=== PATIENT | female | born 1945 | race Two or more races ===

== ENCOUNTER 2025-01-11 13:28 | Emergency (ER) | payer OTHER ==
[~2025-01-11] VITALS: Ht 162.6 cm; Wt 60.5 kg
--- NOTE | 2025-01-11 13:44 | ED.PDOC ---
HPI (NEURO) HPI Comments 79 y/o F, BIBA, with PMHx of thyroid cancer status post resection presents to the ED for CC of s/p syncopal episode. EMS reports, patient is coming from [facility] where she had a witnessed syncopal episode resulting in hitting her head against a bag rack. Per EMS, bystanders relay that after patient hit her head she was unarousable for [id number]. En route to the ED, patient's BS read at 149 and all vital signs were stable. Upon arrival to the ED, patient endorses symptoms of dizziness and faintness with nausea and flushing prior to syncopal episode however, is unable to recount events following. Following trauma, patient c/o pain to her right cervical neck and occipital region. Patient comments, that she is currently fasting d/t having a scheduled appointment with her PCP later today (01/11/25). Patient denies vision changes, chest pain, shortness of breath, weakness, numbness, vomiting, or headache. No other symptoms or modifying factors are present at this time. Chief Complaint: Syncope Time Seen by MD: 13:40 Reviewed Notes: Nurses Notes, Instrument Lens Generator Notes, Medications, Allergies Information Source: Patient, Emergency Med Personnel Mode of Arrival: EMS Severity: Moderate Timing: Minutes Duration: Minutes Prehospital treatment: None Weakness Location: Generalized Onset: At rest Circumstances: Spontaneous Symptoms: Syncope Before: Normal During: Awake After: Normal Mentation History of: None Modifying factors: Nothing Associated Signs and Symptoms: Headache, Neck Pain Past Medical History PAST MEDICAL HISTORY: Cancer Surgical History: Denies all surgeries COMMUNICATIONS PROFESSOR History: Denies all COMMUNICATIONS PROFESSOR Hx Family History Family History: Unknown Social History Smoker: Non-Smoker Alcohol: Denies ETOH Use Drugs: Denies Drug Use Lives In: Home Constitutional: denies: chills, diaphoresis, fatigue, fever, malaise, sweats, weakness, others EENTM: denies: blurred vision, double vision, ear bleeding, ear discharge, ear drainage, ear pain, ear ringing, eye pain, eye redness, hearing loss, mouth pain, mouth swelling, nasal discharge, nose bleeding, nose congestion, nose pain, photophobia, tearing, throat pain, throat swelling, voice changes, others Respiratory: denies: cough, hemoptysis, orthopnea, SOB at rest, shortness of breath, SOB with excertion, stridor, wheezing, others Cardiovascular: reports: dizzy spells; denies: chest pain, diaphoresis, Dyspnea on exertion, edema, irregular heart beat, left arm pain, lightheadedness, palpitations, PND, syncope, others Gastrointestinal: reports: nausea; denies: abdomen distended, abdominal pain, blood streaked bowels, constipated, diarrhea, dysphagia, difficulty swallowing, hematemesis, melena, poor appetite, poor fluid intake, rectal bleeding, rectal pain, vomiting, others Genitourinary: denies: abnormal vagina bleeding, burning, dyspareunia, dysuria, flank pain, frequency, hematuria, incontinence, pain, , vagina discharge, urgency, others Neurological: reports: headache; denies: dizziness, fainting, left sided numbness, left sided weakness, numbness, paresthesia, pre-existing deficit, right sided numbness, right sided weakness, seizure, speech problems, tingling, tremors, weakness, others Musculoskeletal: reports: back pain, neck pain; denies: gout, joint pain, joint swelling, muscle pain, muscle stiffness, others Integumetry: denies: bruises, change in color, change in hair/nails, dryness, laceration, lesions, lumps, rash, wounds, others Allergic/Immunocompromised: denies: Difficulty Healing, Frequent Infections, Hives, Itching, others Hematologic/Lymphatic: denies: anemia, blood clots, easy bleeding, easy bruising, swollen glands, others Endocrine: denies: excessive hunger, excessive sweating, excessive thirst, excessive urination, flushing, intolerance to cold, intolerance to heat, unexplained weight gain, unexplained weight loss, others Psychiatric: denies: anxiety, bipolar disorder, depression, hopeless, panic disorder, schizophrenia, sleepless, suicidal, others All Other Systems: Reviewed and Negative Physical Exam General Appearance: No Apparent Distress, Normal HEENT: Normal ENT Inspection, Pharynx Normal Neck: Full Range of Motion, Normal, Normal Inspection, Other (R cervical paraspinal tenderness, no midline tenderness, no stepoff or crepitus) Respiratory: Chest Non-Tender, Lungs Clear, No Accessory Muscle Use, No Respiratory Distress, Normal Breath Sounds Cardiovascular: No Edema, No Murmur, No Gallop, Normal Peripheral Pulses, Regular Rate/Rhythm Breast Exam: Deferred Gastrointestinal: No Organomegaly, Non Tender, No Pulsatile Mass, Normal Bowel Sounds, Soft Genitalia: Deferred Pelvic: Deferred Rectal: Deferred Extremities: No calf tenderness, Normal capillary refill, Normal inspection, Normal range of motion, Non-tender, No pedal edema Musculoskeletal : Location: Right Extremity Location: Back Apperance: Tenderness (paraspinal tenderness) Neurologic: Alert, 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 Was a procedure done?: No Differential Diagnosis (SZ) Seizure: Syncope CVA: Electrolyte Imbalance, Hypoglycemia, SAH, TIA General Weakness: Anemia, Dehydration, Electrolyte imbalance, Hypoglycemia, Hypotension, Hypovolemia, Myocardial infarction, Renal failure, Vertigo: central, Vertigo: peripheral Headache: CVA, Epidural Hemorrhage, Intracerebral Hemorrhage, Subarachnoid Hemorrhage, Subdural Hemorrhage X-Ray, Labs, Meds, VS Vital Signs Date Time Temp Pulse Resp B/P (MAP) Pulse Ox O2 Delivery O2 Flow Rate FiO2 01/11/25 13:34 98.2 88 16 142/88 95 98.2 Lab Test 01/11/25 14:20 Range/Units White Blood Count 8.4 4.4-10.8 10^3/uL Red Blood Count 5.70 H 4.0-5.20 10^6/uL Hemoglobin 17.4 H 12.2-16.2 g/dL Hematocrit 52.1 H 36.0-46.0 % Mean Corpuscular Volume 91.3 80.0-100.0 fL Mean Corpuscular Hemoglobin 30.6 28.0-32.0 pg Mean Corpuscular Hemoglobin Concent 33.5 32.0-36.0 g/dL Red Cell Distribution Width 17.0 H 11.8-14.3 % Platelet Count 230 140-450 10^3/uL Mean Platelet Volume 8.2 6.9-10.8 fL Neutrophils (%) (Auto) 70.7 37.0-80.0 % Lymphocytes (%) (Auto) 19.9 10.0-50.0 % Monocytes (%) (Auto) 8.0 0.0-12.0 % Eosinophils (%) (Auto) 1.0 0.0-7.0 % Basophils (%) (Auto) 0.4 0.0-2.0 % Neutrophils # (Auto) 5.9 1.6-8.6 10 ^3/uL Lymphocytes # (Auto) 1.7 0.4-5.4 10 ^3/uL Monocytes # (Auto) 0.7 0-1.3 10 ^3/uL Eosinophils # (Auto) 0.1 0-0.8 10 ^3/uL Basophils # (Auto) 0 0-0.2 10 ^3/uL Nucleated Red Blood Cells 0.1 % Sodium Level 137 136-145 mmol/L Potassium Level 3.8 3.5-5.1 mmol/L Chloride Level 99 98-107 mmol/L Carbon Dioxide Level 28 20-31 mmol/L Anion Gap 10 5-15 Blood Urea Nitrogen 9 9-23 mg/dL Creatinine 1.15 H 0.550-1.02 mg/dL Glomerular Filtration Rate Calc 48 >90 mL/min BUN/Creatinine Ratio 7.8 L 10.0-20.0 Serum Glucose 101 74-106 mg/dL Calcium Level 9.6 8.7-10.4 mg/dL Troponin I High Sensitivity 4 </=34 ng/L B-Type Natriuretic Peptide 60.77 0-100 pg/mL X-Ray, Labs, Meds, VS Comment Patient with history of thyroid cancer, presents with witnessed syncopal episode today. Vital signs stable and exam unremarkable. NIHSS 0 on arrival. Chest x-ray to evaluate for evidence of pneumonia, pneumothorax, CHF EKG and troponin to evaluate for evidence of arrhythmia, ACS, AMI Lab work (CBC, BMP) to evaluate for evidence of severe anemia, electrolyte abnormality including hypokalemia, hyperkalemia, hypernatremia, hyponatremia, hyperglycemia, hypoglycemia, etc. CT head to evaluate for intracranial hemorrhage, large mass, acute infarct, fra cture CT cervical spine to evaluate for fracture or dislocation Re-evaluate Time of 1ST Reevaluation: 14:10 Reevaluation 1ST: Unchanged Patient Education/Counseling: Diagnosis, Treatment Family Education/Counseling: No Family Present Departure 1 Departure Time of Disposition: 15:21 (On reassessment, patient's EKG nonischemic and troponin negative. Labs imaging unremarkable for traumatic injury. We will admit for syncope evaluation) Impression: Primary Impression: Syncope Additional Impressions: Blunt head trauma Nausea Disposition: 09 ADMITTED INPATIENT Admit to: Tele Condition: Guarded Critical Care Note Critical Care Time?: No Stability Stability form required: No Heart Score Heart Score: Heart Score Response (Comments) Value History N/A 0 EKG N/A 0 Age N/A 0 Risk Factors N/A 0 Troponin N/A 0 Total 0 I personally scribed for SANCHEZ FAUSTIN MD ([email or web address]) on 01/11/25 at 13:44. Electronically submitted by Ladi Perla ([email or web address]). I personally scribed for SANCHEZ FAUSTIN MD ([email or web address]) on 01/11/25 at 13:48. Electronically submitted by Ladi Perla ([email or web address]). I personally scribed for SANCHEZ FAUSTIN MD ([employer]) on 01/11/25 at 14:07. Electronically submitted by Ladi Perla ([email or web address]). SANCHEZ FAUSTIN MD Jan 11, 2025 13:44
--- NOTE | 2025-01-11 14:13 | DVH ---
CHEST RADIOGRAPH Indication: syncope Technique: Single frontal view of the chest was obtained Comparison: None FINDINGS: Lines and Tubes: None Lungs: No focal consolidation. Surgical clips are noted over the right medial lung apex. Pleura: No effusion. No pneumothorax. Cardiomediastinal contours: Unremarkable. Midline sternotomy wires are noted. Bones: No acute osseous abnormality. IMPRESSION: No acute cardiopulmonary disease.
--- NOTE | 2025-01-11 14:20 | DVH ---
CLINICAL INFORMATION: Fall injury. TECHNIQUE: Axial imaging was obtained through the brain without contrast. Coronal and sagittal reformatted images were obtained, reviewed, and stored. Images were reviewed in brain and bone windows. All CT scans at this medical facility are performed using dose modulation techniques as appropriate to a performed exam including the following: Automated exposure control was utilized; adjustment of the MA and/or KV according to patient size; and use of iterative reconstruction technique. CTDIvol = 52.04 mGy DLP = 920.38 mGy-cm COMPARISON: None FINDINGS: There is no acute intracranial hemorrhage. No mass effect or midline shift. Scattered areas of hypoattenuation are seen in the periventricular and subcortical white matter, which are nonspecific but most likely sequelae of small vessel ischemic disease. Focal area of hypoattenuation in the right basal ganglia, likely chronic lacunar infarct. The ventricles and sulci are within normal limits in size for age. Basal cisterns are patent. The calvarium is unremarkable. Complete opacification of the left maxillary sinus and contiguous with opacification in the left side of the nasal cavity, consistent with mucocele. Milder partial opacification in the right maxillary sinus and mild mucosal thickening of the ethmoid air cells. Mastoid air cells are clear. IMPRESSION: 1. No CT evidence of acute intracranial abnormality. 2. Nonacute findings as described above.
[2025-01-11 14:40] LABS: Hematocrit 52.1 % (36.0-46.0); Hemoglobin 17.4 g/dL (12.2-16.2); Mean Corpuscular Hemoglobin 30.6 pg (28.0-32.0); Mean Corpuscular Volume 91.3 fL (80.0-100.0); Nucleated Red Blood Cells % 0.1 %
[2025-01-11 14:48] LABS: Chloride 99 mmol/L (98-107); Potassium 3.8 mmol/L (3.5-5.1); Sodium 137 mmol/L (136-145)
[2025-01-11 14:49] LABS: Anion Gap 10 (5-15); Calcium 9.6 mg/dL (8.7-10.4); Carbon Dioxide 28 mmol/L (20-31)
[2025-01-11 14:54] LABS: BUN/Creatinine Ratio 7.8 (10.0-20.0); Blood Urea Nitrogen 9 mg/dL (9-23); Glucose 101 mg/dL (74-106)
--- NOTE | 2025-01-11 15:03 | DVH ---
Indication: fall Technique: CT axial images of the cervical spine are obtained without contrast. Coronal and sagittal reformats were obtained. Radiation Dose Information: CTDI volume is 12.1 mGy. Dose-length product is 342.01 mGy*cm Comparison: None FINDINGS: The cervical vertebral body heights are maintained. Straightening of normal cervical spine curvature. 3 mm anterolisthesis C7 upon T1. There is moderate to advanced disc space narrowing. No prevertebral edema. Facet articulations demonstrate moderate facet hypertrophic changes . The atlantooccipital, atlantoaxial articulations are intact. Right thyroidectomy. Heterogeneous lesion in the left thyroid bed with calcifications measuring 1.7 cm. IMPRESSION: Moderate to advanced cervical degenerative disc disease. Right thyroidectomy. Heterogeneous lesion in the left thyroid bed measuring 1.7 cm. Recommend ENT consultation and thyroid ultrasound to further evaluate, managed.
[2025-01-11] MEDS ORDERED: SODIUM CHLORIDE 0.9% 1,000 ML IV ONE (18:00)
[2025-01-11 18:43] VITALS: BP 74/60; PULSE 70; RESP 18; TEMP 98.6; O2SAT 97
[2025-01-11] MEDS ORDERED: TRAM50TA2 PO ×3 (18:44→18:50)
[2025-01-11] MEDS ORDERED: METH-1181 PO (18:47)
[2025-01-11] MEDS ORDERED: NALO4SPR2 (18:51)
--- NOTE | 2025-01-11 18:52 | DVHDS2 ---
Discharge Summary Date of Admission Date of Discharge: Jan 11, 2025 Labs/Diagnostic Data: Laboratory Results Test 01/11/25 17:22 01/11/25 14:20 Troponin I High Sensitivity 4 ng/L (</=34) White Blood Count 8.4 10^3/uL (4.4-10.8) Red Blood Count 5.70 10^6/uL (4.0-5.20) Hemoglobin 17.4 g/dL (12.2-16.2) Hematocrit 52.1 % (36.0-46.0) Mean Corpuscular Volume 91.3 fL (80.0-100.0) Mean Corpuscular Hemoglobin 30.6 pg (28.0-32.0) Mean Corpuscular Hemoglobin Concent 33.5 g/dL (32.0-36.0) Red Cell Distribution Width 17.0 % (11.8-14.3) Platelet Count 230 10^3/uL (140-450) Mean Platelet Volume 8.2 fL (6.9-10.8) Neutrophils (%) (Auto) 70.7 % (37.0-80.0) Lymphocytes (%) (Auto) 19.9 % (10.0-50.0) Monocytes (%) (Auto) 8.0 % (0.0-12.0) Eosinophils (%) (Auto) 1.0 % (0.0-7.0) Basophils (%) (Auto) 0.4 % (0.0-2.0) Neutrophils # (Auto) 5.9 10 ^3/uL (1.6-8.6) Lymphocytes # (Auto) 1.7 10 ^3/uL (0.4-5.4) Monocytes # (Auto) 0.7 10 ^3/uL (0-1.3) Eosinophils # (Auto) 0.1 10 ^3/uL (0-0.8) Basophils # (Auto) 0 10 ^3/uL (0-0.2) Nucleated Red Blood Cells 0.1 % Sodium Level 137 mmol/L (136-145) Potassium Level 3.8 mmol/L (3.5-5.1) Chloride Level 99 mmol/L (98-107) Carbon Dioxide Level 28 mmol/L (20-31) Anion Gap 10 (5-15) Blood Urea Nitrogen 9 mg/dL (9-23) Creatinine 1.15 mg/dL (0.550-1.02) Glomerular Filtration Rate Calc 48 mL/min (>90) BUN/Creatinine Ratio 7.8 (10.0-20.0) Serum Glucose 101 mg/dL (74-106) Calcium Level 9.6 mg/dL (8.7-10.4) B-Type Natriuretic Peptide 60.77 pg/mL (0-100) Other Laboratory Tests 01/11/25 14:20 Brief Hx & Hospital Course: Patient is an 79-year-old female with past medical history of thyroid cancer currently on chemotherapy, CKD, atrial fibrillation not currently taking her Eliquis due to cost, who presents after syncopal episode while shopping today at the store. Patient states she was fasting for more than 24 hours and preparation for her follow-up visit at her primary care doctor. Patient was reportedly dropping when she syncopized. Patient is currently not taking any Eliquis. CT brain without contrast was done which did not reveal any acute intracranial abnormality. CT cervical spine was done which did not reveal any fractures. Imaging revealed a right thyroidectomy and heterogeneous lesion in the left thyroid bed measuring 1.7 cm. It is recommended that patient have an ENT consultation and thyroid ultrasound to further evaluate and manage. This finding was discussed with the patient who noted that she sees her oncologist regularly and recently performed similar imaging. She agreed to follow-up with them regarding these findings. Furthermore, the patient's CBC was within normal limits. BMP was done which showed BUN/creatinine of 9/1.15. Troponin was nonelevated x 3. BNP was nonelevated. Chest x-ray was done which did not reveal any acute abnormalities. Vitals were noted to be within normal limits without any signs of hypotension. Patient complained of some neck discomfort. She was monitored for several hours and was able to ambulate to the bathroom without any assistance or difficulty. Patient denied having any chest pain. EKG was reviewed which showed some T wave abnormalities in V1-V3. Patient is to have cardiology follow-up with her outpatient. Patient was given [place] while in the ER. She was noted to be stable for discharge. She was discharged on tramadol and methocarbamol for her neck pain and for muscle spasms. She was counseled on side effects of drowsiness with her daughter at bedside. Overall, patient will follow-up with her primary care doctor. She was given ER return precautions. She was discharged in stable condition. Condition at Discharge: Good Final Diagnosis/Problems List Syncope Secondary Diagnosis: Atrial Fibrillation Thyroid Cancer Discharge Disposition: Home Discharge Instruct/Medications Diet: Cardiac 2g Na,low cholest Activity: No Restrictions, As Tolerated Follow Up/Referral: Follow up with cardiology. Follow up with oncology. Medications: Tramadol Methacarbomal Scheduled Naloxone HCl (Narcan), 4 MG NA ONCE Scheduled PRN Methocarbamol (Methocarbamol), 500 MG PO Q8HP PRN Tramadol Hcl (Tramadol Hcl), 50 MG PO Q8HPRN PRN Discharge Statement: "Patient was advised to return to the ER or call 911 if any headaches, dizziness, shortness of breath, chest pain, abdominal pain, bleeding, fevers, or worsening of medical condition. Patient was counseled about treatment plan, medications, possible side effects, patientverbalized understanding. All questions were answered to the best of my ability. This discharge took greater then 30 minutes in planning, reviewing documentation, counseling the patient, and discussing with other team members." ASSESSMENT ASSESSMENT Assessment Syncope RILEY CAPUTO DO Jan 11, 2025 18:52
[2025-01-11] MEDS: HYDROcodone-ACET 5/325MG TAB PO ONE (19:30)
== END 2025-01-11 19:33 | disposition home or self-care (01) ==
LOC: EDBD 13:28 → ER 13:28
DX: S09.8XXA Other specified injuries of head, initial encounter (principal); R55 Syncope and collapse; R11.0 Nausea; W22.8XXA Striking against or struck by other objects, initial encounter; Y93.89 Activity, other specified; Y92.89 Other specified places as the place of occurrence of the external cause; Y99.8 Other external cause status
CPT/HCPCS: 36415; 70450; 71045; 72125; 80048; 83880; 84484; 85025